=== PATIENT | female | born 1990 | race African-American/Black ===

== ENCOUNTER 2021-10-19 00:55 | Observation (INO) ==
[2021-10-18 22:04] LABS: Amorphous Sediment,Urine Few per hpf (None-Few); Bacteria,Urine Few per hpf (None-Few); Bilirubin,Urine Negative (Negative); Blood,Urine Large (Negative); Clarity,Urine Ex.Turbid (Clear); Color,Urine Yellow (Yellow); Glucose,Urine (UA) Normal (Normal); Ketones,Urine Negative (Negative); Leukocyte Esterase,Urine Moderate (Negative); Mucus,Urine Few per lpf (None-Few); Nitrite,Urine Negative (Negative); Protein,Urine Trace mg/dL (Neg-Trace); RBC,Urine TNTC per hpf (0-3); Specific Gravity,Urine 1.019 (1.010-1.025); Squamous Epithelial Cell,Urine Moderate per hpf (None-Few); Urobilinogen,Urine Normal (Normal)
[2021-10-18 22:17] LABS: Amphetamine Screen,Urine Negative ng/mL (Cutoff=1000); Barbiturate Screen,Urine Negative ng/mL (Cutoff=200); Benzodiazepines Screen,Urine Negative ng/mL (Cutoff=200); Cannabinoid Screen,Urine Negative ng/mL (Cutoff = 50); Cocaine Screen,Urine Negative ng/mL (Cutoff= 300); Opiate Screen,Urine Negative ng/mL (Cutoff=300); Phencyclidine Screen,Urine Negative ng/mL (Cutoff=25)
[2021-10-18 22:49] LABS: Rubella IgG Antibody POSITIVE (POSITIVE); Varicella Zoster IgG Antibody Positive
[2021-10-18 22:56] LABS: Hepatitis B Surface Antigen Nonreactive (Nonreactive)
[2021-10-18 23:25] LABS: HIV-1&2 Antibody & p24 Ag Nonreactive (Nonreactive)
[~2021-10-19 00:55] MED LIST: Ringers Solution, Lactated 1,000 ML IVC SCH
[2021-10-19 05:45] VITALS: BP 109/60; PULSE 90; TEMP 98.1; O2SAT 96
== END 2021-10-19 07:53 | disposition home or self-care (01) ==
LOC: 1NENULAB → 1NENUOBS 00:55
PROVIDERS: ADMIT Registered Nurse; ATTEND Registered Nurse

== ENCOUNTER 2022-03-18 03:20 | Inpatient (IN) ==
[~2022-03-18 03:20] MED LIST changes: +Famotidine 20 MG/2 ML VIAL IVP PRN; +Metoclopramide 10 MG/2 ML VIAL IVP PRN; +Naloxone 0.4 MG/ML INJ IVP PRN; -Ringers Solution, Lactated 1,000 ML IVC SCH
[2022-03-18] MEDS ORDERED: Ibuprofen 600 MG TABLET PO ONE (04:09)
[2022-03-18 04:30] LABS: Basophils % 0.3 %; Eosinophils % 0.3 %; Immature Granulocytes % 0.5 % (0-4); Lymphocytes # 1.8 K/mcL (0.6-4.6); Lymphocytes % 27.6 %; Mean Corpuscular Volume 87.1 fL (83.0-100.0); Mean Platelet Volume 11.6 fL (9.4-12.4); Monocytes # 0.5 K/mcL (0.0-1.3); Monocytes % 7.2 %; Neutrophils # 4.1 K/mcL (1.6-8.9); Platelet Count 143 K/mcL (140-400); Red Blood Count 4.82 M/mcL (3.82-4.97); Red Cell Distribution Width 13.5 % (11.5-14.5); Segmented Neutrophils % 64.1 %; White Blood Count 6.4 K/mcL (4.3-11.1)
[2022-03-18] MEDS ORDERED: *HR* Oxytocin 10 UNIT/ML VIAL IM ONE ×2 (06:19→08:00)
[2022-03-18] MEDS ORDERED: Rho Immune Globulin 1,500 UNIT SYRINGE IM PRN (06:19)
[2022-03-18] MEDS ORDERED: Benzocaine/Menthol 56 GM AEROSOL SPRAY TP PRN (06:19)
[2022-03-18] MEDS ORDERED: Ondansetron ODT 4 MG TAB.RAPDIS SL PRN (06:19)
[2022-03-18] MEDS ORDERED: Lanolin 7 G OINT...G. TP PRN (06:19)
[2022-03-18] MEDS ORDERED: Measles/Mumps/Rubella Vacc 0.5 ML VIAL SQ PRN (06:19)
[2022-03-18] MEDS: Acetaminophen 325 MG TABLET PO SCH ×3 (06:45→20:20)
[2022-03-18] MEDS ORDERED: Oxytocin 30 UNIT/503 ML BAG IVC SCH (08:15)
[2022-03-18 09:10] LABS: Basophils % 0.2 %; Eosinophils % 0.1 %; Hematocrit 33.8 % (35.3-44.9); Immature Granulocytes % 0.5 % (0-4); Lymphocytes % 18.9 %; Mean Corpuscular HGB Conc 31.4 g/dL (31.6-35.5); Mean Corpuscular Volume 86.2 fL (83.0-100.0); Mean Platelet Volume 11.9 fL (9.4-12.4); Monocytes % 9.3 %; Neutrophils # 7.4 K/mcL (1.6-8.9); Platelet Count 144 K/mcL (140-400); Red Blood Count 3.92 M/mcL (3.82-4.97); Red Cell Distribution Width 13.4 % (11.5-14.5)
[2022-03-18 09:20] LABS: Hemoglobin 10.6 g/dL (11.5-15.4); White Blood Count 10.4 K/mcL (4.3-11.1)
[2022-03-18 09:22] LABS: Hepatitis B Surface Antigen Nonreactive (Nonreactive)
[2022-03-18 09:51] LABS: HIV-1&2 Antibody & p24 Ag Nonreactive (Nonreactive)
[2022-03-18 10:49] LABS: Rubella IgG Antibody POSITIVE (POSITIVE); Varicella Zoster IgG Antibody Positive
[2022-03-18 12:10] LABS: Amphetamine Screen,Urine Positive ng/mL (Cutoff=1000); Barbiturate Screen,Urine Negative ng/mL (Cutoff=200); Benzodiazepines Screen,Urine Negative ng/mL (Cutoff=200); Cannabinoid Screen,Urine Negative ng/mL (Cutoff = 50); Cocaine Screen,Urine Negative ng/mL (Cutoff= 300); Opiate Screen,Urine Negative ng/mL (Cutoff=300); Phencyclidine Screen,Urine Negative ng/mL (Cutoff=25)
[2022-03-18] MEDS: Ibuprofen 600 MG TABLET PO SCH ×2 (14:14→20:19)
[2022-03-19] MEDS: Acetaminophen 325 MG TABLET PO SCH ×3 (06:14→18:33)
[2022-03-19] MEDS: Ibuprofen 600 MG TABLET PO SCH ×3 (06:14→18:35)
[2022-03-19] MEDS: Prenatal Vit/FA 1 EACH TABLET PO SCH (08:25)
[2022-03-19 10:49] LABS: Hemoglobin 9.3 g/dL (11.5-15.4); Mean Corpuscular HGB Conc 32.1 g/dL (31.6-35.5); Mean Corpuscular Hemoglobin 27.5 pg (28.0-33.3); Mean Corpuscular Volume 85.8 fL (83.0-100.0); Mean Platelet Volume 11.5 fL (9.4-12.4); Platelet Count 161 K/mcL (140-400); Red Blood Count 3.38 M/mcL (3.82-4.97); Red Cell Distribution Width 13.6 % (11.5-14.5); White Blood Count 8.5 K/mcL (4.3-11.1)
[2022-03-19] MEDS ORDERED: miSOPROStoL 100 MCG TABLET RC STA (11:59)
[2022-03-19] MEDS ORDERED: Ringers Solution, Lactated 1,000 ML IVC SCH (19:00)
[2022-03-19] MEDS ORDERED: *HR* HYDROmorphone PF 0.5 MG/0.5 ML SYRINGE IVP PRN (19:33)
[2022-03-19] MEDS ORDERED: *HR* FentaNYL (PF) 100 MCG/2 ML VIAL IVP PRN (19:33)
[2022-03-19] MEDS ORDERED: Ondansetron 4 MG/2 ML VIAL IVP PRN (19:33)
[2022-03-19] MEDS ORDERED: Ondansetron 4 MG/2 ML VIAL ONE (23:28)
[2022-03-19] MEDS ORDERED: Lidocaine -MPF 4% 5 ML AMPUL ONE (23:28)
[2022-03-19] MEDS ORDERED: *HR* Succinylcholine 200 MG/10 ML VIAL IVP ONE (23:28)
[2022-03-19] MEDS ORDERED: *HR* FentaNYL (PF) 100 MCG/2 ML VIAL ONE (23:29)
[2022-03-19] MEDS ORDERED: *HR* Propofol 200 MG/20 ML VIAL IVP ONE (23:29)
[2022-03-19] MEDS ORDERED: Lidocaine -MPF 2% 2 ML VIAL ONE (23:29)
[2022-03-19] MEDS ORDERED: Famotidine 20 MG/2 ML VIAL ONE (23:48)
[2022-03-20] MEDS ORDERED: Gentamicin 80 MG/2 ML VIAL ONE ×2 (00:31→00:32)
[2022-03-20] MEDS ORDERED: Clindamycin 900 MG/50 ML 900 MG/50 ML IV.SOLN IVPB ONE (00:31)
[2022-03-20] MEDS ORDERED: Ringers Solution, Lactated 1,000 ML IVC SCH (02:00)
[2022-03-20 07:40] VITALS: BP 97/60; PULSE 78; TEMP 97.8; O2SAT 98
[2022-03-20] MEDS ORDERED: metroNIDAZOLE 500 MG TABLET PO SCH (09:00)
[2022-03-20] MEDS ORDERED: cephALEXin 500 MG CAPSULE PO SCH (09:00)
[2022-03-20] MEDS: Acetaminophen 325 MG TABLET PO SCH (09:15)
[2022-03-20] MEDS: Prenatal Vit/FA 1 EACH TABLET PO SCH (09:17)
[2022-03-20] MEDS: Ibuprofen 600 MG TABLET PO SCH (09:17)
== END 2022-03-20 12:00 | disposition left against medical advice (07) | DRG 560 ==
LOC: 1NENULAB → MERGE 03:20 → 1NENUOBS 05:47
PROVIDERS: ADMIT Registered Nurse; ATTEND Registered Nurse